=== PATIENT | female | born 1990 | race Caucasian/White ===

== ENCOUNTER 2016-12-09 08:29 | Inpatient (IN) | payer BC ==
[2016-12-09] MEDS ORDERED: Buffered Lidocaine 1% SYRIN* 3 ML/SYR SYRINGE INTRADERM PRN (09:04)
[2016-12-09] MEDS ORDERED: Lidocaine 1% MPF* 2 ML VIAL ONE (09:15)
[2016-12-09] MEDS: Clindamycin 900 MG IVPREMIX(* 900 MG/50 ML SDV IV SCH (09:35)
[2016-12-09] MEDS ORDERED: Acetaminophen TAB* 325 MG PO ONE (10:00)
[2016-12-09 10:40] LABS: Hematocrit 31 % (35-47); Hemoglobin 10.6 g/dl (12.0-16.0); Mean Corpuscular HGB Conc 34 g/dl (31-36); Mean Corpuscular Hemoglobin 30 pg (27-31); Mean Corpuscular Volume 88 fL (80-97); Mean Platelet Volume 10 um3 (7.4-10.4); Red Blood Count 3.51 10^6/ul (4.0-5.4); Red Cell Distribution Width 13 % (10.5-15); White Blood Count 8.5 10^3/ul (3.5-10.8)
[2016-12-09] MEDS ORDERED: fentaNYL* 50 MCG/ML 2 ML VIAL (100 MCG VIAL) ONE ×2 (15:11→15:17)
[2016-12-09] MEDS ORDERED: Oxytocin in LR* 0 UNITS/0 ML BAG IVPB ONE (15:32)
[2016-12-09] MEDS ORDERED: Glycerin ADULT SUPP PR PRN (15:36)
[2016-12-09] MEDS ORDERED: Witch Hazel PAD* JAR TOPICAL PRN (15:36)
[2016-12-09] MEDS ORDERED: Dibucaine 1% 28.35 GM TUBE PR PRN (15:36)
[2016-12-09] MEDS ORDERED: RHO D Immune Globulin (HUMAN)* 300 MCG = 1,500 I.U. INJ IM ONE (15:36)
[2016-12-09] MEDS ORDERED: Measles, Mumps,Rubella VACC* 0.5 ML/VIAL SUBCUT ONE (15:36)
[2016-12-09] MEDS ORDERED: Ibuprofen TAB* 600 MG ONE (15:37)
[2016-12-09] MEDS: Ibuprofen TAB* 600 MG PO PRN ×2 (15:40→23:31)
[2016-12-09] MEDS: Acetaminophen TAB* 325 MG PO PRN (18:15)
[2016-12-09] MEDS: Docusate CAP* 100 MG PO SCH (20:38)
[2016-12-10] MEDS: oxyCODONE/Acetamin 5/325 MG* TAB PO PRN ×2 (01:55→05:38)
[2016-12-10] MEDS: Simethicone CHEW TAB* 80 MG PO SCH ×2 (03:41→03:42)
[2016-12-10] MEDS: Ibuprofen TAB* 600 MG PO PRN ×2 (05:38→17:33)
[2016-12-10] MEDS: Clindamycin 900 MG IVPREMIX(* 900 MG/50 ML SDV IV SCH (05:51)
[2016-12-10 07:49] LABS: Hematocrit 32 % (35-47); Hemoglobin 10.9 g/dl (12.0-16.0); Mean Corpuscular HGB Conc 34 g/dl (31-36); Mean Corpuscular Hemoglobin 30 pg (27-31); Mean Corpuscular Volume 89 fL (80-97); Mean Platelet Volume 9 um3 (7.4-10.4); Red Cell Distribution Width 13 % (10.5-15); White Blood Count 9.8 10^3/ul (3.5-10.8)
[2016-12-10] MEDS: Docusate CAP* 100 MG PO SCH ×3 (08:34→21:16)
[2016-12-10] MEDS ORDERED: Ferrous Gluconate TAB* 324 MG TAB PO SCH (09:00)
[2016-12-10] MEDS: Acetaminophen TAB* 325 MG PO PRN (21:16)
[2016-12-11] MEDS: Docusate CAP* 100 MG PO SCH (08:23)
[2016-12-11 08:28] VITALS: BP 130/86
== END 2016-12-11 12:25 | disposition home or self-care (01) | DRG 560 ==
LOC: MCHOBOUT 08:29 → MCHOB 08:59
PROVIDERS: ADMIT Midwife; ATTEND Midwife
PROC: 10E0XZZ Delivery of Products of Conception, External Approach (ICD-10-PCS; principal; 2016-12-09)
PROC: 10907ZC Drainage of Amniotic Fluid, Therapeutic from Products of Conception, Via Natural or Artificial Opening (ICD-10-PCS; 2016-12-09)
PROC: 4A1HXCZ Monitoring of Products of Conception, Cardiac Rate, External Approach (ICD-10-PCS; 2016-12-09)
DX: O48.0 Post-term pregnancy (principal); O99.824 Streptococcus B carrier state complicating childbirth; O69.89X0 Labor and delivery complicated by other cord complications, not applicable or unspecified; O77.0 Labor and delivery complicated by meconium in amniotic fluid; Z3A.40 40 weeks gestation of pregnancy; Z37.0 Single live birth
CPT/HCPCS: 36415; 85025; 86850; 86870; 86880; 86900; 86901; A9270-GY; J3010